=== PATIENT | male | born 1970 | race Caucasian/White ===

== ENCOUNTER 2022-03-06 10:01 | Emergency (ER) | payer OTHER, SELFPAY ==
--- NOTE | 2022-03-06 10:02 | ED.GENADUL_ITS ---
Discharge Plan Disposition Patient Disposition: HOME Condition: Stable Discharge Details Clinical Impression: Cyanosis of tip of finger, Raynaud's phenomenon, History of COVID-19 Primary Care Provider: Ava,Local ED Provider: Blank Drummond Home Meds and New Rx's Prescriptions: New amlodipine 5 mg tablet 5 mg PO DAILY Qty: 30 0RF Continued dextroamphetamine-amphetamine [Adderall] 30 mg Tablet 30 mg PO DAILY levothyroxine [Synthroid] 100 mcg Tablet 110 mcg PO DAILY magnesium 250 mg Tablet 400 mg PO DAILY dextroamphetamine-amphetamine [Adderall XR] 30 mg Capsule,Extended Release 24hr 30 mg PO QAM Discharge Instructions Instructions: Raynaud Disease (ED) Additional Instructions: Your lab work, EKG and imaging today is reassuring and shows no evidence of acute concerning or significant findings. The signs in your finger may be due to a spasm of the blood vessel as seen in Raynaud's disease or syndrome or an inflammation in a blood vessel as seen in vasculitis. A prescription for a calcium channel neela called amlodipine which can help with muscle relaxation was sent electronically to your pharmacy. Do not take this medication if your systolic blood pressure drops below 100. A referral has been placed to [facility] rheumatology for further evaluation. Follow-up with your primary care doctor in 1 week. Return to the emergency department with any worsening or new concerning symptoms. Discharge Data Discharge Date/Time-TO BE ENTERED AT DEPARTURE: 03/06/22 15:57 Discharge Physician: Blank Drummond Medical Decision Making 1000 -- 51-year-old male with a history of leukemia with bone marrow transplant in 2005 with diagnosis of COVID 2 weeks ago which he states he has since recovered from presents with sensation of pain, coolness and paleness to his right second fingertip for 2 days with right ankle and left knee pain in addition to shortness of breath this morning. Patient appears comfortable and nontoxic. His vitals are within normal limits. His right second finger tip appears pale, cool and tender to touch. There is no obvious deformity. This does appear consistent with a vascular problem, possibilities include vasculitis, ischemia in the setting of acute infection. Will obtain screening labs, chest x-ray, EKG. His oxygen saturation is 98% on room air. EKG notes a rate of 81, sinus with left anterior fascicular block but no STEMI nondiagnostic. 1220 -- Discussed with hospitalist--recommends bilateral lower extremity ultrasound. Would recommend echo but they are unavailable today. Concern for possible PE in setting of shortness of breath, post-COVID and now potential blood clot in the upper extremity. Recommend CTA chest. Discussed with radiologist and unable to obtain arterial ultrasounds will plan for CTA right upper extremity. 1430 --CT chest negative for PE but does note atypical groundglass opacities which can be seen with history of COVID-19. As he has normal oxygen saturation without fever or current complaint of shortness of breath, do not indication for treatment with antibiotics. A procalcitonin level has been sent. CTA right upper extremity negative for occlusion. Bilateral lower extremity Doppler ultrasounds negative for DVT. Labs reviewed. Normal white blood cell count, coagulation studies and lactate. CRP minimally elevated at 1.99. Procalcitonin negative. Case reviewed with hospitalist service who agreed with treatment for possible Raynaud's with calcium channel blockers. I will hold on treatment with steroids for possible vasculitis at this time. Referral to [facility] nephrology placed on care management list. Advised to follow up with the primary care doctor for re-evaluation. Usual and customary return precautions given prior to discharge. Medical Records Medical records reviewed: Yes I reviewed the patient's medical records. Imaging Data Radiologic Study: Radiologist's impression: XR CHEST 2V PA ? LATERAL CLINICAL HISTORY:? shortness of breath, r/o acute disease TECHNIQUE:? 2D digital imaging was performed of the chest.? Two images were obtained.? PA and lateral views were obtained. COMPARISON:? No exams were available for comparison FINDINGS: MEDIASTINUM: Normal.? HEART: Normal. PULMONARY VASCULATURE: Normal. LUNGS: Clear. ? PLEURAL SPACE: No pleural effusion or pneumothorax. BONE:Within normal limits for the patient's age.? OTHER FINDINGS:Normal.? IMPRESSION: No acute pulmonary findings. CT CHEST PE CTA CLINICAL HISTORY: ? shortness of breath, r/o PE. TECHNIQUE:? Imaging Protocol:? Axial CT angiography was performed with multi- slice acquisition and multi-planar and/or 3D reconstructions. CONTRAST MATERIAL:? Intravenous: Omnipaque 350ml contrast volume:75 mL COMPARISON:? CR XR CHEST 2V PA ? LATERAL from 03/06/2022 FINDINGS: Tracheobronchial tree: Patent where visualized. Pulmonary parenchyma: Small ground-glass opacities are seen in the lungs predominantly peripherally.? No architectural distortion. Pulmonary Arteries: No evidence of filling defect to suggest pulmonary emboli. Mediastinum and Shayla: No dominant adenopathy or fluid collection.? The esophagus is unremarkable.? Visualized thyroid gland: Unremarkable.? Pleura: No effusion or pneumothorax. Heart: The heart is not dilated. No coronary artery calcifications are seen. No pericardial effusion.? Aorta: Thoracic aorta non-dilated. No evidence of dissection. Upper abdomen:? Unremarkable. Soft tissues: Unremarkable.? Bones: Within normal limits for the patient's age. IMPRESSION: 1. No evidence of pulmonary embolism, thoracic aortic dissection or aneurysm. 2. Scattered ground-glass opacities in the lungs predominantly peripherally.? The findings may represent an infectious or inflammatory process.? These findings would be consistent with a atypical infections including COVID-19.? Please correlate clinically. US EXTREMITY VENOUS BI CLINICAL HISTORY: ? R and L ankle pain, r/o dvt.? TECHNIQUE:? Bilateral lower extremity venous ultrasound performed using grayscale, color-flow, and spectral Doppler analysis. COMPARISON:? No exams were available for comparison FINDINGS: The bilateral common femoral, femoral and popliteal veins demonstrate normal compressibility, augmentation, and color Doppler. The posterior tibial veins are patent. The saphenofemoral junctions are unremarkable. There is no evidence of a Menchaca's cyst. The soft tissues are unremarkable. IMPRESSION: 1. Right: Negative for DVT 2. Left: Negative for DVT 3. Results of this exam have been verbally communicated with provider. CT UPPER EXTREMITY RT CTA CLINICAL HISTORY: ? possible blot lot R 2nd fingertip ? TECHNIQUE:? Imaging Protocol: Axial computed tomography images with coronal and sagittal reformatted images were created and reviewed. CONTRAST MATERIAL:? Intravenous: Omnipaque 350 Contrast volume:75 contrast route:IV - COMPARISON:? CT CT CHEST PE CTA from 03/06/2022 FINDINGS: Bones: The osseous structures are intact. There is no evidence of fracture or dislocation. Bony alignment is satisfactory.? No lytic or sclerotic lesions are identified. Soft Tissues: Unremarkable Aortic arch: No evidence of stenosis or occlusion.? Subclavian artery: No evidence of occlusion or stenosis.? Axillary artery: No evidence of occlusion or stenosis.? Brachial artery: No evidence of occlusion or stenosis. Intraosseous artery: No evidence of occlusion or stenosis. Ulnar artery: No evidence of occlusion or stenosis.? Radial artery: No evidence of occlusion or stenosis.? Palmar arch: No evidence of occlusion or stenosis.? Digital arteries: No evidence of occlusion or stenosis.? Normal. IMPRESSION: 1. No evidence of arterial occlusion or stenosis in the right upper extremity.? 2. Results of this exam have been verbally communicated with provider. Lab Data Lab results reviewed: Yes I reviewed the patient's lab results. Labs: Laboratory Tests Range/Units 03/06/22 03/06/22 03/06/22 10:52 10:52 10:52 WBC (4.4-10.8) 10^3/uL 7.72 RBC (4.36-5.78) 10^6/uL 4.52 Hgb (13.5-17.5) g/dL 14.6 Hct (40.0-50.0) % 43.1 MCV (80-95) fL 95 MCH (27.0-33.0) pg 32.3 MCHC (32.0-36.0) % 33.9 RDW (11.8-14.1) % 13.0 Plt Count (130-400) 10^3/uL 179 MPV (8.0-11.0) fL 8.7 Immature Gran % 1.3 Neutrophils % 76.1 Lymphocytes % 11.9 Monocytes % 9.1 Eosinophils % 1.2 Basophils % 0.4 Nucleated RBC % (0.0-0.3) % 0.0 Absolute Neutrophils (1.2-6.7) 10^3/uL 5.88 Absolute Lymphocytes (1.2-3.4) 10^3/uL 0.92 L Absolute Monocytes (0.1-0.8) 10^3/uL 0.70 Absolute Eosinophils (0.0-0.7) 10^3/uL 0.09 Absolute Basophils (0.0-0.2) 10^3/uL 0.03 ESR (0-15) mm/hr PT (9.3-11.0) sec INR (0.9-1.1) APTT (21.0-27.5) sec VBG Lactate (0.6-1.4) mmol/L 0.8 Sodium (136-145) mmol/L 138 Potassium (3.5-5.1) mmol/L 3.9 Chloride (98-107) mmol/L 103 Carbon Dioxide (21.0-32.0) mmol/L 27.7 Anion Gap (3-11) mmol/L 7.3 BUN (7-18) mg/dL 24 H Creatinine (0.70-1.30) mg/dL 1.5 H Estimated GFR/1.73 m2 (mL/min/1.73m2) 49.74 Glucose (74-106) mg/dL 104 Calcium (8.5-10.1) mg/dL 9.0 Magnesium (1.8-2.4) mg/dL 2.1 Total Bilirubin (0.2-1.0) mg/dL 0.5 AST (15-37) U/L 25 ALT (16-63) U/L 37 Alkaline Phosphatase (46-116) U/L 101 Troponin I (<or=60) ng/L < 50 C-Reactive Protein (0.0-0.3) mg/dL Total Protein (6.4-8.2) g/dL 6.9 Albumin (3.4-5.0) g/dL 3.2 L TSH (0.36-3.74) uIU/mL Range/Units 03/06/22 03/06/22 03/06/22 10:52 10:52 10:52 WBC (4.4-10.8) 10^3/uL RBC (4.36-5.78) 10^6/uL Hgb (13.5-17.5) g/dL Hct (40.0-50.0) % MCV (80-95) fL MCH (27.0-33.0) pg MCHC (32.0-36.0) % RDW (11.8-14.1) % Plt Count (130-400) 10^3/uL MPV (8.0-11.0) fL Immature Gran % Neutrophils % Lymphocytes % Monocytes % Eosinophils % Basophils % Nucleated RBC % (0.0-0.3) % Absolute Neutrophils (1.2-6.7) 10^3/uL Absolute Lymphocytes (1.2-3.4) 10^3/uL Absolute Monocytes (0.1-0.8) 10^3/uL Absolute Eosinophils (0.0-0.7) 10^3/uL Absolute Basophils (0.0-0.2) 10^3/uL ESR (0-15) mm/hr PT (9.3-11.0) sec 9.7 INR (0.9-1.1) 1.0 APTT (21.0-27.5) sec 22.8 VBG Lactate (0.6-1.4) mmol/L Sodium (136-145) mmol/L Potassium (3.5-5.1) mmol/L Chloride (98-107) mmol/L Carbon Dioxide (21.0-32.0) mmol/L Anion Gap (3-11) mmol/L BUN (7-18) mg/dL Creatinine (0.70-1.30) mg/dL Estimated GFR/1.73 m2 (mL/min/1.73m2) Glucose (74-106) mg/dL Calcium (8.5-10.1) mg/dL Magnesium (1.8-2.4) mg/dL Total Bilirubin (0.2-1.0) mg/dL AST (15-37) U/L ALT (16-63) U/L Alkaline Phosphatase (46-116) U/L Troponin I (<or=60) ng/L C-Reactive Protein (0.0-0.3) mg/dL 1.99 H Total Protein (6.4-8.2) g/dL Albumin (3.4-5.0) g/dL TSH (0.36-3.74) uIU/mL 2.90 Range/Units 03/06/22 10:52 WBC (4.4-10.8) 10^3/uL RBC (4.36-5.78) 10^6/uL Hgb (13.5-17.5) g/dL Hct (40.0-50.0) % MCV (80-95) fL MCH (27.0-33.0) pg MCHC (32.0-36.0) % RDW (11.8-14.1) % Plt Count (130-400) 10^3/uL MPV (8.0-11.0) fL Immature Gran % Neutrophils % Lymphocytes % Monocytes % Eosinophils % Basophils % Nucleated RBC % (0.0-0.3) % Absolute Neutrophils (1.2-6.7) 10^3/uL Absolute Lymphocytes (1.2-3.4) 10^3/uL Absolute Monocytes (0.1-0.8) 10^3/uL Absolute Eosinophils (0.0-0.7) 10^3/uL Absolute Basophils (0.0-0.2) 10^3/uL ESR (0-15) mm/hr 30 H PT (9.3-11.0) sec INR (0.9-1.1) APTT (21.0-27.5) sec VBG Lactate (0.6-1.4) mmol/L Sodium (136-145) mmol/L Potassium (3.5-5.1) mmol/L Chloride (98-107) mmol/L Carbon Dioxide (21.0-32.0) mmol/L Anion Gap (3-11) mmol/L BUN (7-18) mg/dL Creatinine (0.70-1.30) mg/dL Estimated GFR/1.73 m2 (mL/min/1.73m2) Glucose (74-106) mg/dL Calcium (8.5-10.1) mg/dL Magnesium (1.8-2.4) mg/dL Total Bilirubin (0.2-1.0) mg/dL AST (15-37) U/L ALT (16-63) U/L Alkaline Phosphatase (46-116) U/L Troponin I (<or=60) ng/L C-Reactive Protein (0.0-0.3) mg/dL Total Protein (6.4-8.2) g/dL Albumin (3.4-5.0) g/dL TSH (0.36-3.74) uIU/mL ECG Data Attestation: I personally reviewed and interpreted this ECG (s) as follows: Interpretation: Rate of 81, sinus, left anterior fascicular block. No STEMI HPI General Mode of arrival: ambulatory . Date/Time Provider Initiated Documentation: 03/06/22 10:01 . Limitations to Documentation: no limitations . Information obtained by: patient . HPI Narrative: Patient is a 51-year-old male with a remote history of leukemia with history of bone marrow transplant 2005 who has received 2 COVID vaccines and was diagnosed with COVID 14 days ago presents with right second fingertip pain, paleness and coolness to touch for the past 2 days with shortness of breath, right ankle and left knee pain today. Patient states he did not receive any antivirals or monoclonal antibody infusion for his COVID. He states his symptoms of COVID included cough and fatigue but denied any shortness of breath during his acute infection. He states his shortness of breath today feels like he is having difficulty taking a deep breath. He denies any fever, ear pain, sore throat, chest pain, abdominal pain, vomiting, urinary symptoms or diarrhea. Related Data Home Medications Medication Instructions Recorded Confirmed amlodipine 5 mg tablet 5 mg PO DAILY #30 tabs 03/06/22 dextroamphetamine-amphetamine 30 30 mg PO DAILY 03/06/22 03/06/22 mg tablet (Adderall) dextroamphetamine-amphetamine ER 30 mg PO QAM 03/06/22 03/06/22 30 mg 24hr capsule,extend release (Adderall XR) levothyroxine 100 mcg tablet 110 mcg PO DAILY 03/06/22 03/06/22 (Synthroid) magnesium 250 mg tablet 400 mg PO DAILY 03/06/22 03/06/22 Previous Rx's Medication Instructions Recorded amlodipine 5 mg tablet 5 mg PO DAILY #30 tabs 03/06/22 Allergies Allergy/AdvReac Type Severity Reaction Status Date / Time promethazine [From Phenergan] Allergy Unverified 03/06/22 10:59 General Stated Complaint: GenMedical BERHANE: 3 Review of Systems All systems reviewed & are unremarkable except as noted in HPI and below Constitutional Constitutional: Denies chills, Denies excessive sweating, Denies fatigue, Denies fever(s), Denies weakness and Denies weight loss Eyes Eyes: Reports system reviewed and no additional complaints, except as documented and Denies blurry vision ENT Ears, Nose, Mouth, and Throat: Denies vertigo, Denies dizziness, Denies otalgia, Denies nasal congestion, Denies sore throat and Denies throat swelling Cardiovascular Cardiovascular: Denies chest pain, Denies syncope, Denies rapid heart rate and Denies dyspnea Respiratory Respiratory: Denies chest congestion, Denies cough, Denies pain on inspiration and Denies dyspnea Gastrointestinal Gastrointestinal: Denies abdominal pain, Denies diarrhea and Denies vomiting Genitourinary Genitourinary: Denies hematuria, Denies dysuria and Denies flank pain Musculoskeletal Musculoskeletal: Denies back pain and Denies joint swelling Integumentary/Breasts Skin/Breast: Denies lesions and Denies rash Neurologic Neurologic: Denies behavioral changes, Denies confusion, Denies vertigo, Denies dizziness, Denies syncope, Denies localized weakness and Denies weakness Psychiatric Psychiatric: Denies behavioral changes, Denies confusion and Denies depression Endocrine Endocrine: Denies excessive sweating and Denies fatigue Hematologic/Lymphatic Hematologic/Lymphatic: Denies easy bruising and Denies lymphadenopathy Allergic/Immunologic Allergic/Immunologic: Denies throat swelling PFSH All Active Problems (Updated 03/06/22 @ 15:00 by Blank Drummond DO) Cyanosis of tip of finger (Acute) Raynaud's phenomenon (Acute) History of COVID-19 (Acute) Medical History (Updated 03/06/22 @ 15:00 by Blank Drummond DO) Leukemia Diagnosed 2005. In remission. Surgical History (Updated 03/06/22 @ 10:58 by Blank Drummond DO) H/O bone marrow transplant Hx of chest tube placement L side secondary to lung infection in setting of line infection during treatment for leukemia S/P reconstruction of ligament of knee Social History Smoking/Tobacco Use Status: Never Smoking risk assessment performed?: Yes Alcohol Intake: never Substance use type: does not use Do you feel safe at home: Yes Do you feel safe in your relationship?: Yes Exam Const General: cooperative and no acute distress Orientation: alert, awake and oriented x3 HENMT Head: normal to inspection Ears: hearing grossly normal bilaterally and external ears normal General nose exam: external nose normal Face and sinus: normal facial exam Mouth: oral mucosae normal Teeth and gingiva: dentition normal Throat: posterior oropharynx normal Eyes General: appearance normal, both eyes and all related structures Eyelids: eyelids normal Pupils: PERRL EOM: EOM intact bilaterally Neck Neck: normal visual inspection Lymphatic: no lymphadenopathy noted Chest Chest: normal inspection of the chest Resp Effort & Inspection: normal respiratory effort and able to speak in complete sentences Auscultation: clear to auscultation bilaterally Cardio Rate: regular rate Rhythm: regular rhythm GI Inspection: normal to inspection Palpation: soft, not firm, no guarding, no hepatosplenomegaly, no masses and nontender Auscultation: normal bowel sounds Back/Spine/Pelvis Back: no CVA tenderness Skin General skin exam: no rashes or lesions noted Neuro General: patient alert and patient awake Cognition: normal cognition Speech: speech normal Gait: normal gait Motor: muscle tone normal throughout Sensory Exam: no sensory deficits noted Extrem Hand/finger images: 1. Right second fingertip cool and painful to touch and without noted capillary refill. Nail appears pale. Finger pad appears blue-purplish. No rashes noted. No bony deformity noted. Psych Appearance: grossly normal Mental Status: mental status grossly normal Speech and Movement: speech and movement normal Affect: normal affect Thought Process: normal
[2022-03-06 10:06] VITALS: BP 128/72; PULSE 98; RESP 18; TEMP 36.7; O2SAT 98
--- NOTE | 2022-03-06 10:30 | RT.EKG_ITS ---
APPROVED REPORT Exam: Resting ECG Reason for Exam: shortness of breath Patient Location: E HR:81 bpm ECG Measurements Heart Rate 81 AXIS CA 133 P 59 QRSd 96 QRS -50 QT 378 T 51 QTc 438 Conclusion Sinus rhythm...normal P axis, V-rate 60- 99 Left anterior fascicular block...axis(240,-40), init forces inf. Sinus. LAFB. No STEMI. I have reviewed and interpreted ECG and agree with software generated interpretation.
[2022-03-06 11:01] LABS: Lactate 0.8 mmol/L (0.6-1.4)
[2022-03-06 11:02] LABS: Absolute Basophil Count 0.03 10^3/uL (0.0-0.2); Absolute Eosinophil Count 0.09 10^3/uL (0.0-0.7); Absolute Lymphocyte Count 0.92 10^3/uL (1.2-3.4); Absolute Neutrophil Count 5.88 10^3/uL (1.2-6.7); Basophils % 0.4; Eosinophils % 1.2; HCT 43.1 % (40.0-50.0); HGB 14.6 g/dL (13.5-17.5); Immature Grans % 1.3; Lymphocytes % 11.9; MCH 32.3 pg (27.0-33.0); MCHC 33.9 % (32.0-36.0); MCV 95 fL (80-95); MPV 8.7 fL (8.0-11.0); Monocytes % 9.1; Neutrophils % 76.1; Platelet Count 179 10^3/uL (130-400); RBC 4.52 10^6/uL (4.36-5.78); RDW-SD 44.9 fL; WBC 7.72 10^3/uL (4.4-10.8)
[2022-03-06 11:15] LABS: PTT Activated 22.8 sec (21.0-27.5); Prothrombin Time 9.7 sec (9.3-11.0)
--- NOTE | 2022-03-06 11:15 | DI.RAD_ITS ---
Exam(s) XR CHEST 2V PA LATERAL EXAM: XR CHEST 2V PA LATERAL CLINICAL HISTORY: shortness of breath, r/o acute disease TECHNIQUE: 2D digital imaging was performed of the chest. Two images were obtained. PA and lateral views were obtained. COMPARISON: No exams were available for comparison FINDINGS: MEDIASTINUM: Normal. HEART: Normal. PULMONARY VASCULATURE: Normal. LUNGS: Clear. PLEURAL SPACE: No pleural effusion or pneumothorax. BONE:Within normal limits for the patient's age. OTHER FINDINGS:Normal. IMPRESSION: No acute pulmonary findings. DATA REPOSITORY: RADIATION DOSE DELIVERED:
[2022-03-06 11:24] LABS: ESR 30 mm/hr (0-15)
[2022-03-06 11:38] LABS: ALT 37 U/L (16-63); AST 25 U/L (15-37); Albumin 3.2 g/dL (3.4-5.0); Alkaline Phosphatase 101 U/L (46-116); Anion Gap 7.3 mmol/L (3-11); BUN 24 mg/dL (7-18); Bilirubin, Total 0.5 mg/dL (0.2-1.0); CO2 27.7 mmol/L (21.0-32.0); CREATININE 1.5 mg/dL (0.70-1.30); Chloride 103 mmol/L (98-107); Estimated GFR 49.74 (mL/min/1.73m2); Glucose 104 mg/dL (74-106); Magnesium 2.1 mg/dL (1.8-2.4); Potassium 3.9 mmol/L (3.5-5.1); Sodium 138 mmol/L (136-145); Total Protein 6.9 g/dL (6.4-8.2); Troponin I < 50 ng/L (<or=60)
[2022-03-06 11:39] LABS: C-Reactive Protein 1.99 mg/dL (0.0-0.3)
--- NOTE | 2022-03-06 12:00 | DI.CT_ITS ---
Exam(s) CT CHEST PE CTA EXAM: CT CHEST PE CTA CLINICAL HISTORY: shortness of breath, r/o PE. TECHNIQUE: Imaging Protocol: Axial CT angiography was performed with multi-slice acquisition and mu lti-planar and/or 3D reconstructions. CONTRAST MATERIAL: Intravenous: Omnipaque 350ml contrast volume:75 mL COMPARISON: CR XR CHEST 2V PA LATERAL from 03/06/2022 FINDINGS: Tracheobronchial tree: Patent where visualized. Pulmonary parenchyma: Small ground-glass opacities are seen in the lungs predominantly peripherally. No architectural distortion. Pulmonary Arteries: No evidence of filling defect to suggest pulmonary emboli. Mediastinum and Shayla: No dominant adenopathy or fluid collection. The esophagus is unremarkable. Visualized thyroid gland: Unremarkable. Pleura: No effusion or pneumothorax. Heart: The heart is not dilated. No coronary artery calcifications are seen. No pericardial effusion. Aorta: Thoracic aorta non-dilated. No evidence of dissection. Upper abdomen: Unremarkable. Soft tissues: Unremarkable. Bones: Within normal limits for the patient's age. IMPRESSION: 1. No evidence of pulmonary embolism, thoracic aortic dissection or aneurysm. 2. Scattered ground-glass opacities in the lungs predominantly peripherally. The findings may repres ent an infectious or inflammatory process. These findings would be consistent with a atypical infect ions including COVID-19. Please correlate clinically. RADIATION DOSE DELIVERED: 500.85mGy.cm Total DLP DATA REPOSITORY: All CT scans at this facility are submitted to the National Radiology Data Registry (NRDR) Dose Index Registry (DIR) with the [employer] ([employer]). RADIATION OPTIMIZATION: All CT scans at this facility use at least one of these dose optimization te chniques: automated exposure control; mA and/or kV adjustment per patient size (includes targeted exa ms where dose is matched to clinical indication); or iterative reconstruction.
--- NOTE | 2022-03-06 12:24 | DI.US_ITS ---
Exam(s) US EXTREMITY VENOUS BI EXAM: US EXTREMITY VENOUS BI CLINICAL HISTORY: R and L ankle pain, r/o dvt. TECHNIQUE: Bilateral lower extremity venous ultrasound performed using grayscale, color-flow, and sp ectral Doppler analysis. COMPARISON: No exams were available for comparison FINDINGS: The bilateral common femoral, femoral and popliteal veins demonstrate normal compressibility, augment ation, and color Doppler. The posterior tibial veins are patent. The saphenofemoral junctions are unr emarkable. There is no evidence of a Menchaca's cyst. The soft tissues are unremarkable. IMPRESSION: 1. Right: Negative for DVT 2. Left: Negative for DVT 3. Results of this exam have been verbally communicated with provider. DATA REPOSITORY:
[2022-03-06] MEDS: Omnipaque 350 MG/ML 100 ML BTL IJ ×2 (12:39→12:40)
[2022-03-06] MEDS: Normal Saline Flush 10 ML SYR IVP (12:41)
--- NOTE | 2022-03-06 12:55 | DI.CT_ITS ---
Exam(s) CT UPPER EXTREMITY RT CTA EXAM: CT UPPER EXTREMITY RT CTA CLINICAL HISTORY: possible blot lot R 2nd fingertip TECHNIQUE: Imaging Protocol: Axial computed tomography images with coronal and sagittal reformatted images were created and reviewed. CONTRAST MATERIAL: Intravenous: Omnipaque 350 Contrast volume:75 contrast route:IV - COMPARISON: CT CT CHEST PE CTA from 03/06/2022 FINDINGS: Bones: The osseous structures are intact. There is no evidence of fracture or dislocation. Bony align ment is satisfactory. No lytic or sclerotic lesions are identified. Soft Tissues: Unremarkable Aortic arch: No evidence of stenosis or occlusion. Subclavian artery: No evidence of occlusion or stenosis. Axillary artery: No evidence of occlusion or stenosis. Brachial artery: No evidence of occlusion or stenosis. Intraosseous artery: No evidence of occlusion or stenosis. Ulnar artery: No evidence of occlusion or stenosis. Radial artery: No evidence of occlusion or stenosis. Palmar arch: No evidence of occlusion or stenosis. Digital arteries: No evidence of occlusion or stenosis. Normal. IMPRESSION: 1. No evidence of arterial occlusion or stenosis in the right upper extremity. 2. Results of this exam have been verbally communicated with provider. RADIATION DOSE DELIVERED: 546.36mGy.cm Total DLP DATA REPOSITORY: All CT scans at this facility are submitted to the National Radiology Data Registry (NRDR) Dose Index Registry (DIR) with the [employer] ([employer]). RADIATION OPTIMIZATION: All CT scans at this facility use at least one of these dose optimization te chniques: automated exposure control; mA and/or kV adjustment per patient size (includes targeted exa ms where dose is matched to clinical indication); or iterative reconstruction.
[2022-03-06 14:05] VITALS: BP 126/54; PULSE 73; RESP 14; O2SAT 99
--- NOTE | 2022-03-06 15:10 | NUR.NOTE ---
[place] [facility] [place] Reynauds [place] two weeks. Put the referral in the healthcare network pricing consultant's box for follow up.Nursing Note:
[2022-03-06 15:27] LABS: Procalcitonin < 0.1 ng/mL
--- NOTE | 2022-03-09 10:30 | PDOC.ERCMACT ---
- If Service Date Differs Date of service: 03/09/22 Time of Service: 10:30 Care Management Activity Note Mina presents in the ED for cyanosis of tip of finger. At the request of ED provider, CM coordinates a referral [place] [facility] [place] to assist Mina in obtaining an appointment for further evaluation and treatment.
== END 2022-03-06 15:57 | disposition home or self-care (01) ==
PROVIDERS: Emergency Provider Physician Assistant
DX: R23.0 Cyanosis (principal); I73.00 Raynaud's syndrome without gangrene; Z86.16 Personal history of COVID-19; R06.02 Shortness of breath; M25.571 Pain in right ankle and joints of right foot; M25.562 Pain in left knee
CPT/HCPCS: 36415; 71275; 73206; 80053; 84145; 85652; 93005; 99285; 71046; 83605; 83735; 84443; 84484; 85025; 85610; 85730; 86140; 93010; 93970; 99284; J3490